=== PATIENT | female | born 1990 | race Caucasian/White ===

== ENCOUNTER → 2017-01-02 | Outpatient (CLI) | payer BC, OTHER ==
[~2017-01-02] MED LIST: OXYC1TAB63 PO; PERC5TAB12 PO; PREN29TA PO
== END ==
LOC: HPND 08:51
PROVIDERS: ATTEND Obstetrics & Gynecology
DX: O36.5930 Maternal care for other known or suspected poor fetal growth, third trimester, not applicable or unspecified (principal)
CPT/HCPCS: 76816; 76818; 76820; 76821

== ENCOUNTER 2017-01-12 07:40 | Inpatient (IN) | payer BC, OTHER ==
[~2017-01-12] VITALS: Ht 162.6 cm; Wt 77.1 kg
[2017-01-12] VITALS (101 sets, daily range): BP systolic 88–160; BP diastolic 19–103; PULSE 65–269; RESP 2–20; TEMP 97.7–101.1
[2017-01-12] MEDS ORDERED: LACTATED RINGER'S 1000 ML INJ 1,000 ML IV PRN (08:03)
--- NOTE | 2017-01-12 08:12 | HHI.HP ---
HPI Chief Complaint IUGR at 38 weeks Date Seen: Jan 12, 2017 Time Seen: 07:50 Travel History International Travel<30 Days: No Contact w/Intl Traveler<30Days: No Known Affected Area: No History of Present Illness HPI 26 yo with 38 week and IUGR less than 10 % Weeks Gestation: 38 Para: 0 : 1 History Past Medical History Medical History: Denies Significant Hx Obstetric History Obstetric History primagravid Past Surgical History Narrative Surgical none Surgical History: No Previous Surgery Family History Family History: Negative Social History Alcohol Use: No Tobacco Use: No Substance Abuse: No Allergies-Medications (Allergen,Severity, Reaction): Coded Allergies: red dye (Verified Allergy, Mild, 01/12/17) Review of Systems Except as stated in HPI: all other systems reviewed are Neg Physical Exam Narrative GENERAL: Well-nourished, well-developed patient. SKIN: Warm and dry. HEAD: Normocephalic and atraumatic. EYES: No scleral icterus. No injection or drainage. ENT: No nasal drainage noted. Mucous membranes pink. Airway patent. NECK: Supple, trachea midline. No JVD. CARDIOVASCULAR: Regular rate and rhythm without murmurs, gallops, or rubs. RESPIRATORY: Breath sounds equal bilaterally. No accessory muscle use. BREASTS: Bilateral exam showed no masses , no retractions, no nipple discharge. ABDOMEN/GI: Abdomen soft, non-tender, bowel sounds present, no rebound, no guarding Gravid to 36 weeks size Fundal Height: [-] GENITOURINARY: External Genitalia: intact and normal in appearance BUS glands: [-] Cervix: [-] Dilatation: [-] Effacement: [-] Station: [-] Presentation: vtx Membranes: [intact Uterine Contractions: [-] FHT's: Category: 1 Baseline: [-] Reactive: [-] Variability: [-] Decels: [-] EXTREMITIES: No cyanosis or edema. BACK: Nontender without obvious deformity. No CVA tenderness. NEUROLOGICAL: Awake and alert. Motor and sensory grossly within normal limits. Five out of 5 muscle strength in all muscle groups. Normal speech. Caprini VTE Risk Assessment Caprini VTE Risk Assessment: No/Low Risk (score <= 1) Caprini Risk Assessment Model Point Value = 1 Point Value = 2 Point Value = 3 Point Value = 5 Age 41-60 Minor surgery BMI > 25 kg/m2 Swollen legs Varicose veins or History of unexplained or recurrent spontaneous Oral contraceptives or hormone replacement Sepsis (< 1 month) Serious lung disease, including pneumonia (< 1 month) Abnormal pulmonary function Acute myocardial infarction Congestive heart failure (< 1 month) History of inflammatory bowel disease Medical patient at bed rest Age 61-74 Arthroscopic surgery Major open surgery (> 45 min) Laparoscopic surgery (> 45 min) Malignancy Confined to bed (> 72 hours) Immobilizing plaster cast Central venous access Age >= 75 History of VTE Family history of VTE Factor V Leiden Prothrombin [id number] Lupus anticoagulant Anticardiolipin antibodies Elevated serum homocysteine Heparin-induced thrombocytopenia Other congenital or acquired thrombophilia Stroke (< 1 month) Elective arthroplasty Hip, pelvis, or leg fracture Acute spinal cord injury (< 1 month) Prophylaxis Regimen Total Risk Factor Score Risk Level Prophylaxis Regimen 0-1 Low Early ambulation 2 Moderate Order ONE of the following: *Sequential Compression Device (SCD) *Heparin 5000 units SQ BID 3-4 Higher Order ONE of the following medications: *Heparin 5000 units SQ TID *Enoxaparin/Lovenox 40 mg SQ daily (WT < 150 kg, CrCl > 30 mL/min) *Enoxaparin/Lovenox 30 mg SQ daily (WT < 150 kg, CrCl > 10-29 mL/min) *Enoxaparin/Lovenox 30 mg SQ BID (WT < 150 kg, CrCl > 30 mL/min) AND/OR *Sequential Compression Device (SCD) 5 or more Highest Order ONE of the following medications: *Heparin 5000 units SQ TID (Preferred with Epidurals) *Enoxaparin/Lovenox 40 mg SQ daily (WT < 150 kg, CrCl > 30 mL/min) *Enoxaparin/Lovenox 30 mg SQ daily (WT < 150 kg, CrCl > 10-29 mL/min) *Enoxaparin/Lovenox 30 mg SQ BID (WT < 150 kg, CrCl > 30 mL/min) AND *Sequential Compression Device (SCD) Data Data Vital Signs Reviewed: Yes Orders Orders Admit To Inpatient (01/12/17 ) Code Status (01/12/17 08:03) Vital Signs (Adult) .Per protocol (01/12/17 08:03) Heart (01/12/17 08:03) Amnioinfusion (01/12/17 08:03) Urinary Catheter Management .ONCE (01/12/17 08:03) Lactated Ringer's 1000 Ml Inj (Lr 1000 M (01/12/17 08:03) Lactated Ringer's 1000 Ml Inj (Lr 1000 M (01/12/17 08:03) Sodium Chlorid 0.9% 500 Ml Inj (Ns 500 M (01/12/17 08:15) Sodium Chlor 0.9% 1000 Ml Inj (Ns 1000 M (01/12/17 08:23) Lidocaine 1% Inj (50 Ml) (Xylocaine 1% I (01/12/17 08:15) Citric Acid-Sodium Citrate Liq (Bicitra (01/12/17 08:15) Fentanyl Inj (Fentanyl Inj) (01/12/17 08:15) Fentanyl Inj (Fentanyl Inj) (01/12/17 08:15) Complete Blood Count With Diff (01/12/17 08:03) Hold Clot (01/12/17 08:03) Abo/Rh Blood Type (01/12/17 08:03) Urinalysis - C+S If Indicated (01/12/17 08:03) Resp Oxygen Non Rebreathe Mask (01/12/17 ) ^ Epidural / Intrathecal Infus (01/12/17 08:03) Oxytocin 30 Units-500ml Premix (Pitocin (01/12/17 08:15) Lidocaine 1% Inj (50 Ml) (Xylocaine 1% I (01/12/17 08:15) Light Mineral Oil (Muri-Lube Oil) (01/12/17 08:15) Inpatient Certification (01/12/17 ) Specimen To Be Collected PRN (01/12/17 08:03) ^ Non Stress Test (01/12/17 08:03) Response To Medication .Post New Med Administration, Reaction (01/12/17 08:03) ^ Discontinue Medication (01/12/17 08:03) Oxytocin Drip (2-2-30) (01/12/17 08:15) Group B Strep: Negative Assessment/Plan Problem List: (1) 38 weeks gestation of ICD Codes: Z3A.38 - 38 weeks gestation of (2) IUGR (intrauterine growth retardation) of ICD Codes: P05.9 - [place] affected by slow intrauterine growth, unspecified Assessment and Plan induction for IUGR Rush Crespo MD Jan 12, 2017 08:12
[2017-01-12] MEDS ORDERED: LIDOCAINE HCL 1% 50 ML VIAL INFIL PRN (08:15)
[2017-01-12] MEDS ORDERED: MINERAL OIL 10 ML VIAL TOPICAL PRN (08:15)
[2017-01-12] MEDS ORDERED: CITRIC ACID-SODIUM CITRATE LIQ 30 ML UDC PO SCH (08:15)
[2017-01-12] MEDS ORDERED: LIDOCAINE HCL 1% 50 ML VIAL I-DERMAL PRN (08:15)
[2017-01-12] MEDS ORDERED: SODIUM CHLORID 0.9% 500 ML INJ 500 ML IV PRN (08:15)
[2017-01-12] MEDS ORDERED: OXYTOCIN 30 UNITS-500ML PREMIX 500 ML IV ONE (08:15)
--- NOTE | 2017-01-12 08:21 | PD.LABORPN ---
Subjective Subjective arom clear Objective Objective Pelvic Exam: Cervix: [-] Dilatation: 2 Effacement: [-] Station: -2 Presentation: [-] Membranes: ruptured] Uterine Contractions: [-] FHT's: Category: 1 Baseline: [-] Reactive: [-] Variability: [-] Decels: [-] Weeks Gestation: 38 Gest Age Assessed Date: Jan 12, 2017 Gest Age Assessed Time: 08:00 Pt started active labor?: No Medical induction of labor?: Yes (IUGR at 38 weeks) Medical induction start date: Jan 12, 2017 Medical induction start time: 08:00 Artificial rupture of membrane: Yes Artificial ROM date: Jan 12, 2017 Artifical ROM time: 08:15 Assessment/Plan Problem List: (1) 38 weeks gestation of ICD Codes: Z3A.38 - 38 weeks gestation of (2) IUGR (intrauterine growth retardation) of ICD Codes: P05.9 - affected by slow intrauterine growth, unspecified Rush Crespo MD Jan 12, 2017 08:21
[2017-01-12] MEDS ORDERED: SODIUM CHLOR 0.9% 1000 ML INJ 1,000 ML IV PRN (08:23)
[2017-01-12] MEDS ORDERED: PREN29TA PO (08:26)
[2017-01-12] MEDS: LACTATED RINGER'S 1000 ML INJ 1,000 ML IV SCH ×2 (08:27→14:48)
[2017-01-12] MEDS ORDERED: OXYTOCIN 30 UNITS-500ML PREMIX 500 ML IV SCH ×2 (09:00→17:00)
[2017-01-12 09:04] LABS: AUTOMATED NEUTROPHIL # 11.5 TH/MM3 (1.8-7.7); BASOPHIL % 0.2 % (0.0-2.0); EOSINOPHIL # 0.2 TH/MM3 (0-0.4); HEMATOCRIT 38.9 % (35.0-46.0); HEMO FLAGS DIFF FINAL; LYMPH % 17.8 % (9.0-44.0); LYMPHOCYTE # 2.8 TH/MM3 (1.0-4.8); MEAN CELL VOLUME 82.3 FL (80.0-100.0); MEAN CORPUSCULAR HEMOGLOBIN 27.2 PG (27.0-34.0); MONO % 7.4 % (0.0-8.0); NEUT % 73.6 % (16.0-70.0); PLATELET COUNT 177 TH/MM3 (150-450); RED BLOOD COUNT 4.72 MIL/MM3 (4.00-5.30); RED CELL DISTRIBUTION WIDTH 12.5 % (11.6-17.2); WHITE BLOOD COUNT 15.7 TH/MM3 (4.0-11.0)
[2017-01-12 09:12] LABS: BACTERIA, URINE RARE /hpf; BLOOD, URINE NEG (NEG); COMMENT (UR) CULT NOT INDICATED; CULTURE IF INDICATED CULT NOT INDICATED; GLUCOSE,URINE NEG (NEG); KETONE, URINE NEG (NEG); MUCUS URINE FEW /lpf (OCC); NITRITE,URINE NEG (NEG); SQUAMOUS EPITHELIAL CELL URINE <1 /hpf (0-5); URINE COLOR LIGHT-YELLOW (YELLW/STRAW)
[2017-01-12] MEDS ORDERED: fentaNYL 2MCG-BUPIV 0.125% INJ 100 ML ONE (10:56)
[2017-01-12] MEDS ORDERED: NO SYSTEM NARCOTICS PRN (13:30)
[2017-01-12] MEDS ORDERED: DO NOT ADMINISTER ANTICOAGULANTS PRN (13:30)
[2017-01-12] MEDS ORDERED: ePHEDrine/NS 25 MG/5 ML SYR IV PUSH PRN (13:30)
[2017-01-12] MEDS ORDERED: fentaNYL 2MCG-BUPIV 0.125% 100 ML EPIDURAL SCH (13:30)
[2017-01-12] MEDS ORDERED: DIPHTH/TETANUS/ACEL PERTUSSIS (BOOSTER) 0.5 ML VIAL/PFS IM ONE (16:00)
[2017-01-12] MEDS ORDERED: MEASLES, MUMPS, RUBELLA VACCINE 0.5 ML VIAL SQ ONE (16:00)
[2017-01-12] MEDS ORDERED: IBUPROFEN 600 MG TAB PO PRN (17:00)
[2017-01-12] MEDS ORDERED: ALUMINUM/MAGNESIUM/SIMETH 30 ML CUP PO PRN (17:00)
[2017-01-12] MEDS ORDERED: ZOLPIDEM TARTRATE 5 MG TAB PO PRN (17:00)
[2017-01-12] MEDS ORDERED: SODIUM CHLORIDE 0.9% FLUSH 10 ML FLUSH IV FLUSH PRN (17:00)
[2017-01-12] MEDS ORDERED: WITCH HAZEL 50%/GLYCERIN 12.5% 40 PAD JAR TOPICAL PRN (17:00)
[2017-01-12] MEDS ORDERED: DOCUSATE SODIUM 50 MG/SENNA 8.6 MG TAB PO PRN (17:00)
[2017-01-12] MEDS ORDERED: ONDANSETRON ODT 4 MG TAB PO PRN (17:00)
[2017-01-12] MEDS ORDERED: BENZOCAINE 20% TOPICAL SPRAY 60 ML CAN TOPICAL PRN (17:00)
[2017-01-12] MEDS ORDERED: oxyCODONE/ACETAMINOPHEN 5 MG/325 MG TAB PO PRN ×2 (17:00)
--- NOTE | 2017-01-12 17:00 | PD.OB.DELI ---
Weeks gestation: 38 Gest age assessed date: Jan 12, 2017 Gest age assessed time: 08:00 Pt started active labor?: No Active labor start date: Jan 12, 2017 Active labor start time: 11:00 Medical induction of labor?: Yes (IUGR at 38 weeks) Medical induction start date: Jan 12, 2017 Medical induction start time: 08:00 Artificial rupture of membrane: Yes Artificial ROM date: Jan 12, 2017 Artifical ROM time: 08:15 Anesthesia: Epidural Episiotomy: None Vaginal Delivery: Normal, Spontaneous Presentation: Occiput anterior Nuchal Cord: None Delayed cord clamping (45 sec): Yes Delivery date: Jan 12, 2017 Delivery time: 16:39 One Minute : 9 Five Minute : 9 Weight: 5# 14 oz Placenta: Spontaneous delivery, Intact, 3 vessel cord Laceration: Perineal laceration, 2 deg Repair: Chromic running Estimated blood loss: 300 Rush Crespo MD Jan 12, 2017 17:00
--- NOTE | 2017-01-12 17:02 | HHI.DCPOC ---
Discharge Care Plan Diagnosis: (1) IUGR (intrauterine growth retardation) of Report Symptoms to Your Doctor -Temperature above 100.5 degrees -Redness, of incision or excessive or foul smelling drainage -Unusual pain or calf pain -Increased vaginal bleeding -Painful or difficulty urinating -Feelings of extreme sadness or anxiety after 2 weeks Goals to Promote Your Health * To prevent worsening of your condition and complications * To maintain your health at the optimal level Directions to Meet Your Goals Take your medications as prescribed Follow your dietary instruction Follow activity as directed Ensure plenty of rest for recovery Drink fluids for hydration Keep your appointments as scheduled Take your immunizations and boosters as scheduled If your symptoms worsen call your PCP, if no PCP go to Urgent Care Center or Emergency Room Smoking is Dangerous to Your Health. Avoid second hand smoke Call the 24-hour crisis hotline for domestic abuse at Rush Crespo MD Jan 12, 2017 17:02
[2017-01-12] MEDS ORDERED: ACETAMINOPHEN 325 MG TAB PO PRN (17:15)
[2017-01-12] MEDS: ACETAMINOPHEN 325 MG TAB PO PRN (19:42)
[2017-01-12] MEDS ORDERED: SODIUM CHLORIDE 0.9% FLUSH 10 ML FLUSH IV FLUSH SCH (21:00)
[2017-01-13] MEDS: ACETAMINOPHEN 325 MG TAB PO PRN ×2 (02:13→15:34)
--- NOTE | 2017-01-13 07:52 | HHI.OB ---
Subjective Post Day: 1 Remarks doing well Objective Vitals/I&O Vital Signs Date Time Temp Pulse Resp B/P (MAP) Pulse Ox O2 Delivery O2 Flow Rate FiO2 01/12/17 22:55 98.8 01/12/17 20:55 99.7 01/12/17 18:55 98.5 01/12/17 18:55 69 20 128/80 (96) 01/12/17 18:55 100.1 01/12/17 18:31 80 127/63 (84) 01/12/17 18:19 20 01/12/17 18:16 75 123/65 (84) 01/12/17 18:00 77 125/69 (87) 01/12/17 18:00 70 01/12/17 17:55 72 01/12/17 17:50 75 01/12/17 17:45 80 01/12/17 17:40 85 01/12/17 17:35 96 01/12/17 17:32 87 20 130/74 (92) 01/12/17 17:30 89 01/12/17 17:25 20 01/12/17 17:25 94 2 01/12/17 17:20 95 01/12/17 17:16 97 106/63 (77) 01/12/17 17:15 90 01/12/17 17:10 93 01/12/17 17:07 99.0 01/12/17 17:06 20 01/12/17 17:06 103 137/83 (101) 01/12/17 17:05 102 99/49 (66) 01/12/17 17:05 103 01/12/17 17:00 91 01/12/17 16:55 108 01/12/17 16:50 110 01/12/17 16:45 122 01/12/17 16:25 118 01/12/17 16:20 110 01/12/17 16:15 125 141/87 (105) 01/12/17 16:05 111 01/12/17 16:00 97 140/84 (102) 01/12/17 16:00 97 01/12/17 15:56 101.1 01/12/17 15:56 16 01/12/17 15:55 114 01/12/17 15:50 99 01/12/17 15:45 106 01/12/17 15:45 126 136/80 (98) 01/12/17 15:40 144 01/12/17 15:35 110 01/12/17 15:30 108 127/76 (93) 01/12/17 15:30 109 01/12/17 15:25 92 01/12/17 15:20 95 01/12/17 15:15 96 01/12/17 15:15 99 124/67 (86) 01/12/17 15:10 91 01/12/17 15:05 94 01/12/17 15:00 94 127/72 (90) 01/12/17 15:00 107 01/12/17 14:55 101 01/12/17 14:54 16 01/12/17 14:54 99.4 01/12/17 14:50 98 01/12/17 14:45 109 01/12/17 14:45 124/76 (92) 01/12/17 14:40 98 01/12/17 14:35 76 01/12/17 14:30 75 01/12/17 14:30 81 128/71 (90) 01/12/17 14:25 80 01/12/17 14:20 80 01/12/17 14:15 85 121/69 (86) 01/12/17 14:15 78 01/12/17 14:10 97 01/12/17 14:05 82 01/12/17 14:01 79 125/73 (90) 01/12/17 14:00 81 01/12/17 13:55 103 01/12/17 13:50 90 01/12/17 13:45 87 123/78 (93) 01/12/17 13:45 69 01/12/17 13:35 86 01/12/17 13:30 82 114/64 (81) 01/12/17 13:30 77 01/12/17 13:24 269 109/71 (84) 01/12/17 13:23 89 95/81 (86) 01/12/17 13:17 88 88/66 (73) 01/12/17 13:00 108 01/12/17 12:50 119/75 (90) 01/12/17 12:50 80 01/12/17 12:45 70 01/12/17 12:45 127/75 (92) 01/12/17 12:41 68 118/58 (78) 01/12/17 12:40 83 01/12/17 12:36 75 117/75 (89) 01/12/17 12:35 85 01/12/17 12:31 74 01/12/17 12:31 120/61 (80) 01/12/17 12:30 130/103 (112) 01/12/17 12:30 104 01/12/17 12:25 74 120/82 (95) 01/12/17 12:21 84 94/19 (44) 01/12/17 12:20 82 01/12/17 12:15 88 01/12/17 12:12 20 01/12/17 12:11 99.0 01/12/17 12:10 85 123/72 (89) 01/12/17 12:10 83 01/12/17 12:05 88 128/103 (111) 01/12/17 12:01 71 109/78 (88) 01/12/17 12:00 94 01/12/17 11:31 72 123/60 (81) 01/12/17 11:30 67 01/12/17 11:27 86 160/78 (105) 01/12/17 11:23 87 137/82 (100) 01/12/17 11:20 82 01/12/17 11:17 91 135/85 (102) 01/12/17 11:15 72 01/12/17 11:10 95 01/12/17 11:05 78 01/12/17 11:00 67 01/12/17 10:48 97.7 01/12/17 09:53 16 01/12/17 09:52 65 133/88 (103) 01/12/17 08:48 79 133/83 (100) 01/12/17 08:15 98.7 01/12/17 08:15 20 01/12/17 08:06 93 137/93 (108) Objective Remarks GENERAL: Well-nourished, well-developed patient. ABDOMEN/GI: Abdomen soft, non-tender. Fundus: Firm, non-tender at umbilicus. GENITOURINARY: Light to moderate bleeding. EXTREMITIES: No cyanosis or edema, non-tender, without signs of DVT. Medications and IVs Current Medications Medications (Trade) Dose Ordered Sig/Hawk Route Start Time Stop Time Status Last Admin Miscellaneous Information No systemic narcotics to be given except... UNSCH PRN .XX 01/12/17 13:30 01/13/17 13:29 Miscellaneous Information DO NOT ADMINISTER ANY ANTICOAGUL... UNSCH PRN .XX 01/12/17 13:30 01/13/17 13:29 (NS Flush) 2 ml BID IV FLUSH 01/12/17 21:00 (NS Flush) 2 ml UNSCH PRN IV FLUSH 01/12/17 17:00 (Tylenol) 650 mg Q4H PRN PO 01/12/17 17:00 01/13/17 02:13 (Percocet 5-325 Mg) 1 tab Q4H PRN PO 01/12/17 17:00 (Percocet 5-325 Mg) 2 tab Q4H PRN PO 01/12/17 17:00 (Americaine 20% Top Spr) 1 spray Q4H PRN TOPICAL 01/12/17 17:00 (Tucks Pads) 1 applic QID PRN TOPICAL 01/12/17 17:00 01/12/17 19:42 (Rosanne-Colace) 2 tab Q12H PRN PO 01/12/17 17:00 (Ambien) 5 mg HS PRN PO 01/12/17 17:00 (Mag-Al Plus Susp Liq) 15 ml Q8H PRN PO 01/12/17 17:00 (Zofran Odt) 4 mg Q6H PRN PO 01/12/17 17:00 (Tylenol) 650 mg Q4H PRN PO 01/12/17 17:15 Assessment/Plan Problem List: (1) 38 weeks gestation of ICD Codes: Z3A.38 - 38 weeks gestation of (2) IUGR (intrauterine growth retardation) of ICD Codes: P05.9 - [place] affected by slow intrauterine growth, unspecified Assessment and Plan delivery for IUGR Rush Crespo MD Jan 13, 2017 07:52
[2017-01-13] MEDS ORDERED: OXYC1TAB63 PO (07:53)
[2017-01-13] MEDS ORDERED: PERC5TAB12 PO (08:00)
[2017-01-13 15:30] VITALS: BP 110/65; PULSE 98; RESP 16; TEMP 98.2
[2017-01-13] MEDS ORDERED: DIPHTH/TETANUS/ACEL PERTUSSIS (BOOSTER) 0.5 ML VIAL/PFS IM ONE (16:00)
[2017-01-13 20:55] VITALS: BP 119/78; PULSE 73; RESP 18; TEMP 97.7
[2017-01-14] MEDS: ACETAMINOPHEN 325 MG TAB PO PRN (03:07)
[2017-01-14 08:00] VITALS: BP 113/77; PULSE 87; RESP 18; TEMP 98.4
--- NOTE | 2017-01-14 10:45 | HHI.DS ---
Admission Date Jan 12, 2017 at 07:40 Discharge Date: Jan 14, 2017 Admitting Diagnosis labor at term Diagnosis: Delivery Date: Jan 12, 2017 Infant: Male Brief History 26 yo with 38 week and IUGR less than 10 % Pt Condition on Discharge: Good Discharge Disposition: Discharge Home Discharge Instructions Diet Instructions: As Tolerated, No Restrictions Activities You Can Perform: Pelvic Rest Nirali Hollins MD Jan 14, 2017 10:45
== END 2017-01-14 12:40 | disposition home or self-care (01) | DRG 775 ==
LOC: H2EA 07:40 → H2EB 11:23 → H1EA 18:50
PROVIDERS: ADMIT Obstetrics & Gynecology; ATTEND Obstetrics & Gynecology
PROC: 10E0XZZ Delivery of Products of Conception, External Approach (ICD-10-PCS; principal; 2017-01-12)
PROC: 0KQM0ZZ Repair Perineum Muscle, Open Approach (ICD-10-PCS; 2017-01-12)
PROC: 00HU33Z Insertion of Infusion Device into Spinal Canal, Percutaneous Approach (ICD-10-PCS; 2017-01-12)
PROC: 3E0R3BZ Introduction of Anesthetic Agent into Spinal Canal, Percutaneous Approach (ICD-10-PCS; 2017-01-12)
PROC: 10907ZC Drainage of Amniotic Fluid, Therapeutic from Products of Conception, Via Natural or Artificial Opening (ICD-10-PCS; 2017-01-12)
DX: O36.5930 Maternal care for other known or suspected poor fetal growth, third trimester, not applicable or unspecified (principal); O70.1 Second degree perineal laceration during delivery; Z37.0 Single live birth; Z3A.38 38 weeks gestation of pregnancy
CPT/HCPCS: 59025; 76818; 76820; 76821; 81001; 85025; 86900; 86901; 90715; J2590; J7120